=== PATIENT | female | born 1970 | race Caucasian/White ===

== ENCOUNTER 2017-08-08 14:48 | Emergency (ER) | payer MEDICAID ==
[~2017-08-08] VITALS: Ht 162.6 cm; Wt 83.7 kg
[~2017-08-08 14:48] MED LIST: CALCITRIOL0.5 MCG PO; CEPHALEXIN500 MG PO; LEVOTHROID SOD0.1 MG PO; PROMETHAZINE HY25 M1 PO; TUMS REGULAR S500 MG CH
[2017-08-08 14:53] VITALS: Ht 162.6 cm; Wt 83.7 kg
[2017-08-08 15:43] LABS: BASOPHIL % 0.7 % (0-2); PLATELET COUNT 299 x10^3mcL (130-400); RED CELL DISTRIBUTION WIDTH 13.6 % (11.5-14.5)
[2017-08-08 15:47] LABS: CALCIUM 6.4 mg/dL (8.5-10.1); CARBON DIOXIDE 29.2 mmol/L (21-32); CHLORIDE SERUM 107 mmol/L (98-107); CREATININE SERUM 0.9 mg/dL (0.6-1.0); GFR1 > 60 mL/min; GLUCOSE SERUM 111 mg/dL (74-106); POTASSIUM SERUM 3.6 mmol/L (3.5-5.1); SODIUM SERUM 144 mmol/L (136-145)
[2017-08-08 16:55] VITALS: BP 131/79
== END 2017-08-08 16:55 | disposition home or self-care (01) ==
LOC: ED 14:48
PROVIDERS: Emergency Medicine
DX: G44.209 Tension-type headache, unspecified, not intractable (principal); M25.511 Pain in right shoulder
CPT/HCPCS: 36415; J1885